=== PATIENT | female | born 1945 | race Hispanic/Latino ===

== ENCOUNTER 2018-12-13 06:30 | Day surgery (SDC) | payer MEDICARE ==
[2018-12-07 12:25] VITALS: BMI 29.0
--- NOTE | 2018-12-10 20:58 | HP ---
DATE OF EXAM: 12/10/2018REASON FOR ADMISSION: Left heart cath possible angioplasty, abnormal stress test. BRIEF CLINICAL HISTORY: This is a 73-year-old female with past medical history significant for hyperthyroidism, atrial fibrillation, chronic hypertension, complaining of chest pain stress test is abnormal, so the patient is scheduled for elective cardiac cath possible angioplasty. PAST MEDICAL HISTORY: Significant for hyperthyroidism, chronic atrial fibrillation, and osteoporosis. SOCIAL HISTORY: Denies any history of alcohol abuse. CURRENT MEDICATIONS: The patient is taking Eliquis 5 mg twice a day last date 12/07/2018, Fosamax 70 mg every weekly, metoprolol tartarate 75 mg once a day, and methimazole 10 mg daily. ALLERGIES: NO KNOWN DRUG ALLERGIES. SOCIAL HISTORY: Denies smoking. Denies any history of alcohol abuse. CURRENT CARDIAC WORKUP FOLLOWS: The patient had echocardiography done on 10/01/2018, that revealed normal LV size ejection fraction of 65%, trace aortic regurgitation, mild valvular aortic stenosis, mild mitral regurgitation, mild tricuspid regurgitation, RV systolic pressure of 39 dated 10/01/2019. The patient has also a stress test done with Isrrael protocol and that shows probably abnormal myocardial perfusion study reversible mid basal anteroseptal defect suspicious for ischemia ejection fraction reported 65%. The patient walked on the treadmill for 6 minutes and 31 seconds with Isrrael protocol due to fatigue, treadmill was stopped. The patient achieved 90% of predicted heart rate. No chest pain noted, but the patient developed ST depression 1 to 1.5 mm in 2, 3 aVF, V5, V6. REVIEW OF SYSTEMS: As per HPI. PHYSICAL EXAMINATION: VITAL SIGNS: Height of the patient 5 feet 6 inches, weight of the patient 180 pounds, body mass index 30 kg/m2. Temperature afebrile, heart rate 69, and blood pressure 130/80. HEENT: PERRLA. Extraocular muscles are intact. NECK: Supple. No carotid bruits or thyromegaly. CHEST: Clear to auscultation. HEART: S1 and S2 regular. ABDOMEN: Soft. EXTREMITIES: Clubbing and cyanosis, negative. IMPRESSION: A 73-year-old female with past medical history significant for chronic atrial fibrillation on Eliquis, last dose of Eliquis on 12/09/2018, history of hyperthyroidism, obesity complaining of chest pain, dyspnea on exertion. The patient's stress test is abnormal. The patient is scheduled for elective cardiac catheterization for possible angioplasty. Echo shows mild aortic stenosis, mild MR, mild TR. RV systolic pressure 39. We will wait for the blood work for cardiac catheterization. Risks, benefits, and alternatives were explained to the patient. The patient again will proceed for cardiac catheterization. Further recommendations after cardiac catheterization. We will follow with you. Thank you Dr. Dashawn Ashby for providing us the opportunity in taking care of the patient, Elaina Grayson. Aleksander Richard MD
[2018-12-13] MEDS ORDERED: Lidocaine 2% Inj (20ml) ONE (06:41)
[2018-12-13] MEDS ORDERED: Iodixanol 320 MG/ML 200 ML BOTTLE IV ONE (06:45)
[2018-12-13] MEDS ORDERED: Iohexol 350mgl/ml 50 ML ONE (06:45)
[2018-12-13] MEDS ORDERED: Iodixanol 320 MG/ML 100 ML BOTTLE IV ONE (06:45)
[2018-12-13] MEDS ORDERED: Phenylephrine 10 mg/ml Inj ONE (06:48)
[2018-12-13] MEDS ORDERED: Verapamil 2 ML ONE (06:48)
[2018-12-13] MEDS ORDERED: Nitroglycerin 50mg in D5W 50 MG/250 ML BOTTLE IV ONE (06:49)
[2018-12-13 07:12] LABS: BASO # 0.01 K/mm3 (0.0-2.0); BASO % 0.2 % (0.0-3.0); EOS # 0.2 (0.0-0.7); EOS % 3.3 % (1.5-5.0); GRAN # 3.82 (1.4-6.5); GRAN % 62.6 % (50.0-68.0); HEMOGLOBIN 12.8 g/dL (12.0-16.0); LYMPH # 1.5 (1.2-3.4); LYMPH % 24.4 % (22.0-35.0); MEAN CELL VOLUME 91.5 fl (80.0-105.0); MEAN CORPUSCULAR HEMOGLOBIN 28.7 pg (25.0-35.0); MEAN CORPUSCULAR HGB CONC 31.4 g/dl (31.0-37.0); MEAN PLATELET VOLUME 13.4 fl (7.0-11.0); MONO # 0.6 (0.1-0.6); MONO % 9.5 % (1.0-6.0); RBC 4.46 10^6/uL (3.5-6.1); RED CELL DISTRIBUTION WIDTH 14.8 % (11.5-14.5); WHITE BLOOD COUNT 6.1 10^3/uL (4.5-11.0)
[2018-12-13 07:27] LABS: BLOOD UREA NITROGEN 15 mg/dL (7-21); CALCIUM 10.5 mg/dL (8.4-10.5); GFR NON-AFRICAN AMERICAN > 60; HDL CHOLESTEROL 78 mg/dL (29-60)
[2018-12-13 07:35] LABS: INR 0.96; PARTIAL THROMBOPLASTIN TIME 28.7 Seconds (25.1-36.5)
[2018-12-13 07:38] LABS: LDL CHOLESTEROL 113 mg/dL (0-129)
[2018-12-13 07:45] VITALS: RESP 20; O2SAT 98
[2018-12-13] MEDS ORDERED: Midazolam 2 MG/2 ML VIAL ONE (07:55)
[2018-12-13] MEDS ORDERED: Bacitracin 500 Units/gm Oint Foilpak UD TOP ONE (08:32)
[2018-12-13] MEDS ORDERED: Sodium Chloride 0.9% 1,000 ML IV SCH (08:45)
[2018-12-13 08:58] VITALS: TEMP 97.7
--- NOTE | 2018-12-13 09:02 | CPOSTOP ---
DATE: 12/13/2018 CARDIOVASCULAR LAB POSTPROCEDURE NOTE PHYSICIAN: Dr. Nicki Richard. BOTTOMING MACHINE OPERATOR: ARCHANA Boyd. TYPE OF ANESTHESIA: Moderate conscious sedation. Total 2 mg of Versed and 50 of fentanyl given periodically. Started 1 mg of Versed and 50 of fentanyl. PRE-PROCEDURE DIAGNOSES: Unstable angina, abnormal stress test, chest pain and atrial fibrillation. PROCEDURE PERFORMED: Left heart catheterization. FINDINGS: Nonobstructive coronary artery disease, distal RPDA diffuse disease, 55 % stenosis. FINAL DIAGNOSIS: Nonobstructive coronary artery disease. POST PROCEDURE CONDITION: The patient's condition is stable. VASCULAR ACCESS SITE: Left radial artery. CLOSURE DEVICE: TR band. TOTAL RADIATION DOSE: 5835.16 milligray unit. TOTAL FLUORO TIME: 2.1 minutes. Aleksander Richard MD MTDHugh
[2018-12-13] MEDS ORDERED: Bacitracin 500 Units/gm Oint Foilpak UD ONE (11:07)
[2018-12-13 11:56] VITALS: PULSE 45
--- NOTE | 2018-12-13 13:22 | CARD ---
APPROVED REPORT Date of service: 12/13/2018 Procedure(s) performed: Left Heart Catheterization HISTORY The patient is a 73 year-old female with a history of : most recent EF: 65%. (EF Method: RADIONUCLIDE), peripheral vascular disease, hypertension , dyslipidemia , Hx of ch. a fib, HTN, hyperthyroidism, chest pain and abnormal stress test , anteroseptal ischemia.. INDICATION The indication(s) include : positive stress test, chest pain, atrial fibrillation. CASE TECHNIQUE The patient was brought electively to the Cardiac Catheterization Laboratory in a fasting state and was prepped and draped in a sterile manner. The left wrist was infiltrated with 2% Lidocaine subcutaneous anesthesia. A 6FR GLIDESHEATH ACCESS KIT sheath was inserted into the left radial artery without difficulty. Coronary angiography was performed using coronary diagnostic catheters. The left coronary system was accessed and visualized with a Diagnostic ,5 Fr JL 4 catheter. The right coronary system was accessed and visualized with a Diagnostic ,5 Fr JR 4 catheter. The left ventricle was accessed and visualized with a 5 Fr Pigtail 145 (Angled) catheter. Left ventricular/Aortic Valve gradient assessed on pullback. Left ventriculogram was performed in GAO projection. Closure device was deployed with a Fr TR Band (Regular) without any complications. The patient tolerated the procedure well and there were no complications associated with the procedure. Vessel Analysis The patient's coronary anatomy is co-dominant. The left main coronary artery is a size vessel with intimal irregularities and without significant stenosis. The left main bifurcates to the left anterior descending and circumflex. The left anterior descending artery is a medium size vessel with intimal irregularities and without significant stenosis. The first diagonal branch is a small size vessel with diffuse calcification noted throughout this vessel and without significant stenosis. The second diagonal branch is a medium size vessel with diffuse calcification noted throughout this vessel and without significant stenosis. The circumflex artery is a large size vessel without significant stenosis. The first obtuse marginal branch is a medium size vessel with intimal irregularities and without significant stenosis. The second obtuse marginal branch is a medium size vessel with intimal irregularities and without significant stenosis. The third obtuse marginal branch is a small size vessel with diffuse calcification noted throughout this vessel and without significant stenosis. The left posterior descending artery is a medium size vessel with intimal irregularities and without significant stenosis. The right coronary artery is a large size vessel with diffuse calcification noted throughout this vessel and without significant stenosis. The right posterior descending artery is a small size vessel with diffuse calcification noted throughout this vessel and without significant stenosis. There is a 55% stenosis in the mid segment. diffusely diseased, non focal non flow limitimg stenosis. The right posterolateral branch is a small size vessel with diffuse calcification noted throughout this vessel and without significant stenosis. Left Ventricle The left ventricle is normal in size with normal contractility. There was no cardiomyopathy. The left ventricular ejection fraction is estimated to be 55-60%. The left ventricular end diastolic pressure is 18 mmHg. There was no gradient across the aortic valve upon pullback. Conclusion Non -Obstructive CAD, Limited to smaller Co -dominant R PDA, 55%,diffusely diseased, non flow limiting stenosis. Preserved LV FX. EF-55-60%, EDP-18 mmof Hg. Ch. A fib on Eliquis Hyperthyroidism. Recommendations Aggressive Medical TherapyCardiac Risk Reduction Program Resume all meds. Eliquis from tomorrow evening. CC: Jorge L Layton MD.
[2018-12-13 14:26] VITALS: BP 156/70
--- NOTE | 2018-12-13 18:41 | CARD ---
APPROVED REPORT Date of service: 12/13/2018 EKG Measurement Heart [id number] <Conclusion> Atrial fibrillation with slow ventricular response Minimal voltage criteria for LVH, may be normal variant Septal infarct, age undetermined Abnormal ECG
--- NOTE | 2018-12-13 21:53 | DS ---
BRIEF HISTORY: This is a 73-year-old female with past medical history significant for hyperthyroidism, chronic atrial fibrillation, and hypertension, on Eliquis, who had an abnormal stress test and chest pain. The patient underwent cardiac catheterization today at [facility] that shows nonobstructive coronary artery disease, limited only to distal RPD. The patient is currently stable, getting discharged, follow up with a plan to Dr. Richard. MEDICATIONS ON DISCHARGE: Include Fosamax 70 mg daily; metoprolol 75 mg once a day; methimazole 10 mg daily; and Eliquis 5 mg twice to be started from tomorrow evening, not today, not tomorrow morning. Principal procedure done on admission includes left heart catheterization from left radial approach. FINAL DIAGNOSES: 1. Nonobstructive coronary artery disease. 2. Hypertension. 3. Hyperthyroidism. 4. Chronic atrial fibrillation. Thank you Dr. Ashby for providing us the opportunity in taking care of the patient, Elaina Grayson. Aleksander Richard MD cc: Dr. Dashawn Ashby
== END 2018-12-13 14:40 | disposition home or self-care (01) ==
LOC: CATH 06:30
PROVIDERS: ATTEND Internal Medicine Cardiovascular Disease
DX: I25.110 Atherosclerotic heart disease of native coronary artery with unstable angina pectoris (principal); E05.90 Thyrotoxicosis, unspecified without thyrotoxic crisis or storm; I48.2 Chronic atrial fibrillation; E78.5 Hyperlipidemia, unspecified; I10 Essential (primary) hypertension; I73.9 Peripheral vascular disease, unspecified; M81.0 Age-related osteoporosis without current pathological fracture; Z79.01 Long term (current) use of anticoagulants
CPT/HCPCS: 36415; 80048; 80061; 85025; 85610; 85730; 86850; 86900; 93005; 93458; 99152; C1769; C1887 ×2; J1644 ×2; J2250; J3010; J7030; J7040; Q9966